=== PATIENT | male | born 1995 | race Caucasian/White ===

== ENCOUNTER 2021-07-03 20:06 | Emergency (ER) | payer SELFPAY ==
[~2021-07-03] VITALS: Ht 188 cm; Wt 84.4 kg
--- NOTE | 2021-07-03 20:30 | NUR ---
PATIENT BIBSELF C/O RIGHT ANKLE PAIN S/P RUNNING IN THE AFTERNOON, TWISTED. PATIENT IS A/O X 4, RR EVEN AND UNLABORED, NO SOB NOTED, PATIENT CONNECETED TO SURVEY DIRECTOR AND POX
--- NOTE | 2021-07-03 20:36 | NUR ---
HOME SECURITY ALARM INSTALLER AT PT'S BEDSIDE
--- NOTE | 2021-07-03 21:18 | NUR ---
Crutches dispensed. Pt instructed on proper use of crutches. Patient able to demonstrate correct use of crutches.
--- NOTE | 2021-07-03 21:19 | NUR ---
Patient discharged to home in stable condition. Written and verbal after care instructions given. Patient verbalizes understanding of instruction.
[2021-07-03 21:20] VITALS: BP 124/70
== END 2021-07-03 21:20 | disposition home or self-care (01) ==
LOC: ER 20:08
DX: S93.491A Sprain of other ligament of right ankle, initial encounter (principal); X50.1XXA Overexertion from prolonged static or awkward postures, initial encounter; Y93.02 Activity, running; Y92.89 Other specified places as the place of occurrence of the external cause; Y99.8 Other external cause status
CPT/HCPCS: 73610-TC